=== PATIENT | female | born 1995 | race Caucasian/White ===

== ENCOUNTER 2016-06-15 11:42 | Emergency (ER) | payer MEDICAID ==
[~2016-06-15] VITALS: Ht 154.9 cm; Wt 66.0 kg
[~2016-06-15 11:42] MED LIST: AMOX875T PO; METF500T PO
[2016-06-15 11:43] VITALS: BP 140/73; PULSE 95; RESP 18; TEMP 98.2; O2SAT 98
[2016-06-15] MEDS ORDERED: LANTUS2P SQ ×2 (12:05→13:39)
[2016-06-15 12:12] VITALS: BP 112/56; PULSE 74; RESP 16; O2SAT 99
[2016-06-15] MEDS ORDERED: ONDANSETRON HCL 4 MG/2 ML VIAL IV PUSH ONE (12:15)
[2016-06-15] MEDS ORDERED: SODIUM CHLOR 0.9% 1000 ML INJ 1,000 ML IV ONE (12:15)
[2016-06-15 12:26] LABS: AUTOMATED NEUTROPHIL # 4.1 TH/MM3 (1.8-7.7); BASOPHIL # 0.1 TH/MM3 (0-0.2); BASOPHIL % 0.8 % (0.0-2.0); EOSINOPHIL % 0.5 % (0.0-4.0); HEMATOCRIT 43.6 % (35.0-46.0); HEMO FLAGS DIFF FINAL; LYMPH % 32.7 % (9.0-44.0); LYMPHOCYTE # 2.2 TH/MM3 (1.0-4.8); MEAN CELL VOLUME 87.3 FL (80.0-100.0); MEAN CORPUSCULAR HEMOGLOBIN 29.8 PG (27.0-34.0); MEAN CORPUSCULAR HGB CONC 34.1 % (32.0-36.0); MONO % 6.4 % (0.0-8.0); NEUT % 59.6 % (16.0-70.0); PLATELET COUNT 159 TH/MM3 (150-450); RED BLOOD COUNT 4.99 MIL/MM3 (4.00-5.30); RED CELL DISTRIBUTION WIDTH 12.4 % (11.6-17.2); WHITE BLOOD COUNT 6.8 TH/MM3 (4.0-11.0)
[2016-06-15 12:53] LABS: BACTERIA, URINE MOD /hpf; BLOOD, URINE TRACE (NEG); COMMENT (UR) CULTURE INDICATED; CULTURE IF INDICATED CULTURE INDICATED; GLUCOSE,URINE 1000 mg/dL (NEG); KETONE, URINE NEG (NEG); MUCUS URINE FEW /lpf (OCC); NITRITE,URINE NEG (NEG); SQUAMOUS EPITHELIAL CELL URINE 90 /hpf (0-5); URINE COLOR YELLOW (YELLW/STRAW)
[2016-06-15 12:54] LABS: ALT (GPT) 14 U/L (10-53); ANION GAP 11 MEQ/L (5-15); AST (GOT) 15 U/L (15-37); BICARBONATE 22.5 MEQ/L (21.0-32.0); BLOOD UREA NITROGEN 5 MG/DL (7-18); CHLORIDE 105 MEQ/L (98-107); GLOMERULAR FILTRATION RATE 103 ML/MIN (>89); POTASSIUM 3.6 MEQ/L (3.5-5.1); SODIUM (NA) 138 MEQ/L (136-145)
[2016-06-15 13:10] LABS: ALKALINE PHOSPHATASE 41 U/L (45-117); BETA HCG QUANT 59073 MIU/ML (0-5); TOTAL BILIRUBIN ADULT 0.4 MG/DL (0.2-1.0)
[2016-06-15] MEDS ORDERED: METF500T PO (13:39)
[2016-06-15] MEDS ORDERED: MACR100C2 PO (13:39)
--- NOTE | 2016-06-15 13:39 | PD ---
HPI Chief Complaint: GI Complaint Time Seen by Provider: 11:56 Travel History International Travel<30 days: No Contact w/Intl Traveler<30days: No Traveled to known affect area: No History of Present Illness HPI Patient is a 21 year old female, , who comes in complaining of lower abdominal pain and vomiting. She says she has had vomiting on and off for the past 4 days. The last time she vomited was this morning when she woke up. She says she has some pain to her lower abdomen. She denies vaginal discharge or bleeding. She says her LMP was May 01 and she believes she might be . She denies fever or chills. She also reports she is out of her Diabetes medications, Lantus 40 units at night and Metformin. PFS Past Medical History Diabetes: Yes Patient Takes Glucophage: Yes Gestational Age in Weeks: 40 Influenza Vaccination: No ?: Unknown LMP: 05/01/2016 : 1 Para: 1 Miscarriage: 0 : 0 Past Surgical History Section: Yes Social History Alcohol Use: No Tobacco Use: No Substance Use: No Allergies-Medications (Allergen,Severity, Reaction): Coded Allergies: No Known Allergies (Verified , 06/15/16) Reported Meds & Prescriptions Reported Meds & Active Scripts Active Macrobid (Nitrofurantoin Monoh/Nitrofur Macro) 100 Mg Cap 100 Mg PO BID 7 Days Metformin (Metformin HCl) 500 Mg Tab 500 Mg PO BIDPC With meals Lantus Inj (Insulin Glargine) 1,000 Unit/10 Ml Vial 40 Units SQ HS 30 Days Reported Lantus Inj (Insulin Glargine) 1,000 Unit/10 Ml Vial 40 Units SQ HS Metformin (Metformin HCl) 500 Mg Tab 500 Mg PO BIDPC With meals Review of Systems Except as stated in HPI: all other systems reviewed are Neg General / Constitutional: No: Fever HENT: No: Headaches, Lightheadedness Cardiovascular: No: Chest Pain or Discomfort Respiratory: No: Shortness of Breath Gastrointestinal: Positive: Nausea, Vomiting, Abdominal Pain Genitourinary: No: Discharge, Vaginal Bleeding Skin: No Rash, No Change in Pigmentation Neurologic: No: Weakness, Dizziness Physical Exam Narrative GENERAL: Awake and alert, in no acute distress. SKIN: Focused skin assessment warm/dry. HEAD: Atraumatic. Normocephalic. EYES: Pupils equal and round. No scleral icterus. ENT: Mucous membranes pink and moist. NECK: Trachea midline. No JVD. CARDIOVASCULAR: Regular rate and rhythm. No murmur appreciated. RESPIRATORY: No accessory muscle use. Clear to auscultation. Breath sounds equal bilaterally. GASTROINTESTINAL: Abdomen soft, non-tender, nondistended. No CVA tenderness : Performed in the presence of female nurse. Thick white discharge. Os is closed. No CMT. MUSCULOSKELETAL: No obvious deformities. No clubbing. No cyanosis. No edema. NEUROLOGICAL: Awake and alert. No obvious cranial nerve deficits. Motor grossly within normal limits. Normal speech. PSYCHIATRIC: Appropriate mood and affect; insight and judgment normal. Data Data Last Documented VS Vital Signs Date Time Temp Pulse Resp B/P Pulse Ox O2 Delivery O2 Flow Rate FiO2 06/15/16 13:55 76 15 115/59 98 06/15/16 12:12 Room Air 06/15/16 11:43 98.2 Orders Complete Blood Count With Diff (06/15/16 12:03) Comprehensive Metabolic Panel (06/15/16 12:03) Lipase (06/15/16 12:03) Urinalysis - C+S If Indicated (06/15/16 12:03) Ed Urine Pregnancytest Poc (06/15/16 12:03) Beta Hcg (Quant/Titer) (06/15/16 12:03) Sodium Chlor 0.9% 1000 Ml Inj (Ns 1000 M (06/15/16 12:15) Ondansetron Inj (Zofran Inj) (06/15/16 12:15) Urine Culture (06/15/16 12:30) Wet Prep Profile (06/15/16 13:08) Gc And Chlamydia Pcr (06/15/16 13:08) Ed Poc Ultrasound (06/15/16 ) Labs Laboratory Tests Test 06/15/16 06/15/16 06/15/16 12:10 12:30 13:10 White Blood Count 6.8 TH/MM3 Red Blood Count 4.99 MIL/MM3 Hemoglobin 14.9 GM/DL Hematocrit 43.6 % Mean Corpuscular Volume 87.3 FL Mean Corpuscular Hemoglobin 29.8 PG Mean Corpuscular Hemoglobin 34.1 % Concent Red Cell Distribution Width 12.4 % Platelet Count 159 TH/MM3 Mean Platelet Volume 8.5 FL Neutrophils (%) (Auto) 59.6 % Lymphocytes (%) (Auto) 32.7 % Monocytes (%) (Auto) 6.4 % Eosinophils (%) (Auto) 0.5 % Basophils (%) (Auto) 0.8 % Neutrophils # (Auto) 4.1 TH/MM3 Lymphocytes # (Auto) 2.2 TH/MM3 Monocytes # (Auto) 0.4 TH/MM3 Eosinophils # (Auto) 0.0 TH/MM3 Basophils # (Auto) 0.1 TH/MM3 CBC Comment DIFF FINAL Differential Comment Sodium Level 138 MEQ/L Potassium Level 3.6 MEQ/L Chloride Level 105 MEQ/L Carbon Dioxide Level 22.5 MEQ/L Anion Gap 11 MEQ/L Blood Urea Nitrogen 5 MG/DL Creatinine 0.71 MG/DL Estimat Glomerular Filtration 103 ML/MIN Rate Random Glucose 291 MG/DL Calcium Level 8.9 MG/DL Total Bilirubin 0.4 MG/DL Aspartate Amino Transf 15 U/L (AST/SGOT) Alanine Aminotransferase 14 U/L (ALT/SGPT) Alkaline Phosphatase 41 U/L Total Protein 7.0 GM/DL Albumin 3.5 GM/DL Lipase 158 U/L Human Chorionic Gonadotropin, 38704 MIU/ML Quant Urine Color YELLOW Urine Turbidity CLOUDY Urine pH 6.0 Urine Specific [place] 1.030 Urine Protein TRACE mg/dL Urine Glucose (UA) 1000 mg/dL Urine Ketones NEG mg/dL Urine Occult Blood TRACE Urine Nitrite NEG Urine Bilirubin NEG Urine Urobilinogen LESS THAN 2.0 MG/DL Urine Leukocyte Esterase LARGE Urine RBC 6 /hpf Urine WBC 77 /hpf Urine Squamous Epithelial 90 /hpf Cells Urine Bacteria MOD /hpf Urine Mucus FEW /lpf Microscopic Urinalysis Comment CULTURE INDICATED Clue Cells (Wet Prep) NONE SEEN Vaginal Trichomonas (Wet Prep) NONE SEEN Vaginal Yeast (Wet Prep) NONE SEEN MDM Medical Decision Making Medical Screen Exam Complete: Yes Emergency Medical Condition: Yes Medical Record Reviewed: Yes Differential Diagnosis UTI vs vs yeast infection vs hyperglycemia Narrative Course Patient is a 21 year old female who comes in complaining of nausea and lower abdominal pain. Exam shows thick white discharge, consistent with yeast. [place] [address]. Urinalysis is positive for bacteria. Patient given IVF and Zofran. She is comfortable, able to tolerate PO. Bedside sono confirms IUP. Patient advised to start vitamins. Given prescriptions for her diabetes medications and for Macrobid for her UTI. Advised to follow up with OB. Advised to return to the ED as needed for any worsening symptoms. Procedures Procedure Narrative Emergency Department Pelvic ultrasound was performed with patient consent. The curvilinear probe was used in the transverse and sagittal views within the suprapubic region revealing single intrauterine . heart rate was 162. [place]-rump length measures 8 weeks and 5 days. Diagnosis Primary Impression: Qualified Code: Z3A.08 - 8 weeks gestation of Additional Impressions: Diabetes mellitus Qualified Code: E11.9 - Type 2 diabetes mellitus without complication, with long-term current use of insulin Medication refill Patient Instructions: General Instructions, (ED) Additional Instructions: Follow up with OB. Take all of your antibiotic and your diabetes medications. Drink plenty of fluids. Return to the ED as needed for any worsening symptoms. Scripts Nitrofurantoin Monohydrate Macrocrystals (Macrobid)100 Mg [id number] Mg PO BID 7 Days Ref 0 Prov:Heide Xiao MD 06/15/16 Metformin 500 Mg [id number] Mg PO BIDPC #60 TAB Ref 0 With meals Prov:Heide Xiao MD 06/15/16 Insulin Glargine Inj (Lantus Inj)1,000 Unit/10 Ml Vial40 Units SQ HS 30 Days Ref 0 Prov:Heide Xiao MD 06/15/16 Disposition: 01 DISCHARGE HOME Condition: Stable Heide Xiao MD Jun 15, 2016 13:39
[2016-06-15 13:55] VITALS: BP 115/59
[2016-06-15 16:25] LABS: CHLAMYDIA PCR NOT DETECTED (NOT DETECT); NEISSERIA PCR NOT DETECTED (NOT DETECT)
== END 2016-06-15 13:56 | disposition home or self-care (01) ==
LOC: NEPD 11:42
DX: O23.41 Unspecified infection of urinary tract in pregnancy, first trimester (principal); B95.1 Streptococcus, group B, as the cause of diseases classified elsewhere; O24.111 Pre-existing type 2 diabetes mellitus, in pregnancy, first trimester; E11.9 Type 2 diabetes mellitus without complications; Z3A.08 8 weeks gestation of pregnancy; Z79.4 Long term (current) use of insulin; Z79.84 Long term (current) use of oral hypoglycemic drugs
CPT/HCPCS: 80053; 81001; 83690; 84702; 84703; 85025; 86403; 87086; 87210; 87491; 87591; 96361; 96374; 99284; J2405; J7030

== ENCOUNTER → 2016-09-19 | Outpatient (CLI) | payer MEDICAID ==
[~2016-09-19] MED LIST changes: -AMOX875T PO; +LANTUS2P SQ; +MACR100C2 PO
== END ==
LOC: CDED 13:36
DX: O24.419 Gestational diabetes mellitus in pregnancy, unspecified control (principal)
CPT/HCPCS: 97802

== ENCOUNTER 2016-10-23 14:00 | Emergency (ER) | payer MEDICAID ==
[2016-10-23 14:03] VITALS: BP 122/83; PULSE 118; RESP 20; TEMP 98.2; O2SAT 99
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
== END 2016-10-23 16:15 | disposition home or self-care (01) ==
LOC: HOBED 14:00
DX: M79.672 Pain in left foot (principal); O24.912 Unspecified diabetes mellitus in pregnancy, second trimester; Z3A.26 26 weeks gestation of pregnancy; Z79.4 Long term (current) use of insulin; Z79.899 Other long term (current) drug therapy
CPT/HCPCS: 99282

== ENCOUNTER 2016-10-23 15:39 | Emergency (ER) | payer MEDICAID, OTHER ==
[~2016-10-23] VITALS: Ht 154.9 cm; Wt 67.0 kg
[2016-10-23 15:41] VITALS: BP 124/82; PULSE 122; RESP 20; TEMP 98.8; O2SAT 100
[2016-10-23] MEDS ORDERED: ACETAMINOPHEN 325 MG TAB PO ONE (16:00)
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
== END 2016-10-23 17:11 | disposition home or self-care (01) ==
LOC: NEPK 15:39
DX: S99.911A Unspecified injury of right ankle, initial encounter (principal); S99.921A Unspecified injury of right foot, initial encounter; S70.02XA Contusion of left hip, initial encounter; E11.9 Type 2 diabetes mellitus without complications; V43.92XA Unspecified car occupant injured in collision with other type car in traffic accident, initial encounter; Z79.4 Long term (current) use of insulin; Z79.899 Other long term (current) drug therapy; Z3A.01 Less than 8 weeks gestation of pregnancy; Z34.91 Encounter for supervision of normal pregnancy, unspecified, first trimester
CPT/HCPCS: 73600; 73620; 99283; E0113; L1906

== ENCOUNTER 2016-12-13 13:17 | Inpatient (IN) | payer MEDICAID ==
[2016-12-13] VITALS (7 sets, daily range): BP systolic 103–127; BP diastolic 61–76; PULSE 58–73; RESP 16–18; TEMP 97.5–97.8; O2SAT 97–100
[~2016-12-13] VITALS: Ht 154.9 cm; Wt 70.0 kg
[~2016-12-13 13:17] MED LIST changes: +LACTATED RINGER'S 1000 ML INJ 2,000 ML IV ONE; +MORPHINE SULFATE PF 5 MG/10 ML VIAL EPIDURAL ONE; +ONDANSETRON HCL 4 MG/2 ML VIAL IV PUSH ONE; +OXYTOCIN 10 UNIT/ML AMP IV ONE; +PHENYLEPH/NS 1000 MCG/10 ML SYR IV ONE
[2016-12-13] MEDS ORDERED: SODIUM CHLORIDE 0.9% FLUSH 10 ML FLUSH IV FLUSH SCH ×2 (14:15→21:00)
[2016-12-13] MEDS ORDERED: DEXTROSE 50% IN WATER 50 ML VIAL(D50) IV PUSH PRN (14:15)
[2016-12-13] MEDS ORDERED: GLUCAGON 1 MG/ML VIAL IM PRN (14:15)
[2016-12-13] MEDS ORDERED: SODIUM CHLORIDE 0.9% FLUSH 10 ML FLUSH IV FLUSH PRN ×2 (14:15→18:15)
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
[2016-12-13 14:37] LABS: BACTERIA, URINE MANY /hpf; BILIRUBIN, URINE NEG (NEG); BLOOD, URINE NEG (NEG); GLUCOSE,URINE 1000 mg/dL (NEG); KETONE, URINE NEG (NEG); MUCUS URINE FEW /lpf (OCC); NITRITE,URINE NEG (NEG); PH, URINE 6.5 (5.0-8.5); SQUAMOUS EPITHELIAL CELL URINE 19 /hpf (0-5); URINE COLOR LIGHT-YELLOW (YELLW/STRAW); URINE LEUKOCYTE ESTERASE SMALL (NEG)
[2016-12-13] MEDS ORDERED: SODIUM CHLOR 0.9% 1000 ML INJ 1,000 ML IV SCH (15:00)
[2016-12-13] MEDS ORDERED: INSULIN HUMAN NPH 1,000 UNITS/10 ML VIAL SQ SCH ×3 (15:00→17:00)
[2016-12-13] MEDS: INSULIN NovoLIN REGULAR SUPPLEMENTAL SCALE SQ SCH ×3 (15:04→20:34)
[2016-12-13 15:40] LABS: AUTOMATED NEUTROPHIL # 5.8 TH/MM3 (1.8-7.7); BASOPHIL % 0.5 % (0.0-2.0); EOSINOPHIL % 0.1 % (0.0-4.0); HEMATOCRIT 42.5 % (35.0-46.0); HEMOGLOBIN 14.6 GM/DL (11.6-15.3); LYMPH % 28.1 % (9.0-44.0); LYMPHOCYTE # 2.4 TH/MM3 (1.0-4.8); MEAN CELL VOLUME 89.1 FL (80.0-100.0); MEAN CORPUSCULAR HEMOGLOBIN 30.5 PG (27.0-34.0); MEAN CORPUSCULAR HGB CONC 34.2 % (32.0-36.0); MEAN PLATELET VOLUME 10.7 FL (7.0-11.0); MONO % 4.8 % (0.0-8.0); MONOCYTE # 0.4 TH/MM3 (0-0.9); NEUT % 66.5 % (16.0-70.0); PLATELET COUNT 138 TH/MM3 (150-450); RED BLOOD COUNT 4.77 MIL/MM3 (4.00-5.30); WHITE BLOOD COUNT 8.7 TH/MM3 (4.0-11.0)
[2016-12-13 16:03] LABS: ALBUMIN 2.6 GM/DL (3.4-5.0); ALT (GPT) 10 U/L (10-53); AST (GOT) 16 U/L (15-37); BICARBONATE 23.3 MEQ/L (21.0-32.0); BLOOD UREA NITROGEN 9 MG/DL (7-18); CALCIUM 8.7 MG/DL (8.5-10.1); CHLORIDE 102 MEQ/L (98-107); CREATININE 0.64 MG/DL (0.50-1.00); GLOMERULAR FILTRATION RATE 116 ML/MIN (>89); GLUCOSE,RANDOM 188 MG/DL (74-106); SODIUM (NA) 134 MEQ/L (136-145)
[2016-12-13 16:06] LABS: ALKALINE PHOSPHATASE 127 U/L (45-117); TOTAL BILIRUBIN ADULT 0.2 MG/DL (0.2-1.0); TOTAL PROTEIN 6.7 GM/DL (6.4-8.2)
[2016-12-13] MEDS ORDERED: ceFAZolin 2 GM PREMIX 50 ML IV ONE (16:15)
[2016-12-13] MEDS ORDERED: ACETAMINOPHEN 1000 MG/100 ML 100 ML IV ONE (16:20)
[2016-12-13] MEDS ORDERED: ceFAZolin INJ 1,000 MG VIAL ONE (16:32)
[2016-12-13] MEDS ORDERED: CITRIC ACID-SODIUM CITRATE LIQ 30 ML UDC ONE (16:32)
[2016-12-13 16:34] LABS: HEMOGLOBIN A1C 8.4 % (4.3-6.0)
[2016-12-13] MEDS ORDERED: OXYTOCIN 30 UNITS-500ML PREMIX 500 ML IV ONE (18:15)
[2016-12-13] MEDS ORDERED: ONDANSETRON HCL 4 MG/2 ML VIAL IV PUSH PRN (18:15)
[2016-12-13] MEDS ORDERED: KETOROLAC TROMETHAMINE 60 MG/2 ML (IM) VIAL IM PRN (18:15)
[2016-12-13] MEDS ORDERED: SODIUM CHLOR 0.45% 1000 ML INJ 1,000 ML IV SCH (19:00)
[2016-12-13] MEDS: diphenhydrAMINE HCL 50 MG/ML VIAL IM PRN (21:25)
--- NOTE | 2016-12-13 21:57 | MP ---
cc: VALERIA LAWLER MD DATE OF SURGERY 12/13/16 PREOPERATIVE DIAGNOSIS Intrauterine at 35-36 weeks with uncontrolled insulin dependent diabetes, non-reassuring heart rate tracing, 2/8 on biophysical profile. POSTOPERATIVE DIAGNOSIS Intrauterine at 35-36 weeks with uncontrolled insulin dependent diabetes, non-reassuring heart rate tracing, 2/8 on biophysical profile. PROCEDURE PERFORMED Repeat low transverse section. SURGEON MD Andres. INTERNAL MEDICINE HOSPITALIST Dr. Lees, [facility]. ANESTHESIA Spinal. PREOPERATIVE NOTE The patient is a 21-year-old white female with class C insulin dependent diabetes, uncontrolled hyperglycemia, referred over from the clinic due to massive glucosuria. Once placed on the monitor here on labor and delivery noted to have a non-reassuring heart tracing with nonreactive strip with tachycardia in the 160-180 range. She had a biophysical profile done that showed a 2/8 with only 2 for fluid, everything else 0, no movement, no breathing, no tone. Ultrasound findings also showed abnormal Dopplers throughout the umbilical cord with absent end diastolic flow and reversal in the artery and pulsatility in the umbilical vein. There was reversal of flow seen in the ductus venosus. The tech terminated the biophysical early, she feared for the baby's life. It was felt that after review of the strip and ultrasound delivery needed. OPERATIVE NOTE The patient was taken to the operating room and placed in the supine position on the operating table after adequate spinal anesthesia. She was prepped and draped for abdominal surgery and the previous Pfannenstiel incision was excised out. The incision was carried through the fascia sharply and the fascia dissected laterally off the rectus. The peritoneal cavity was entered sharply in the midline. The incision was extended superior and inferiorly. The incision stretched open. The bladder blade was placed on the lower edge of the incision. The viscera peritoneum was reflected off the lower uterine segment and placed upon the bladder blade. Transverse hysterotomy was made and extended bluntly bilaterally and a rather massive amount of clear amniotic fluid noted. Baby was delivered at 5:02 p.m., a male , weight 3310 grams, Apgars 2 and 7. The cord ph was 7.02 with a high PC02 reflecting almost total respiratory acidosis. The baby was handed to waiting neonatology and its staff. Cord gas, as mentioned, was obtained. Cord blood obtained. Placenta manually extracted and sent to pathology. The uterus exteriorized. The hysterotomy closed in a running layer of 0-Chromic followed by imbricating suture of same and hemostasis was achieved with a couple of stick ties on the corner of the repair. The uterus was elevated, blood suctioned from the cul-de-sac gutter and the uterus replaced in the peritoneal cavity. The parietal peritoneum closed in a running layer of 2-0 Vicryl. Rectus muscle approximated with stick tie, chromic. The fascia was then closed in a running layer of 0 Vicryl. Subcutaneous tissue was reapproximated with a 3-0 plain cat gut suture in a running fashion. Skin was closed with a Jakub needle, 3-0 Monocryl subcuticular stitch. Steri-Strips, pressure dressing applied. The estimated blood loss was 500 cc. There were no complications. Sponge and needle count correct x 2. The patient went to recovery in stable condition. MD JOSE MARIA Lewis/MANUEL /6:04 PM /9:27 PM
[2016-12-14] MEDS ORDERED: KETOROLAC TROMETHAMINE 60 MG/2 ML (IM) VIAL IM PRN
[2016-12-14 01:00] VITALS: BP 130/91; PULSE 89; RESP 16; TEMP 97.5
[2016-12-14] MEDS ORDERED: OXYTOCIN 30 UNITS-500ML PREMIX 500 ML IV PRN (04:15)
[2016-12-14 05:00] VITALS: BP 116/75; PULSE 68; RESP 16; TEMP 97.7
[2016-12-14] MEDS: oxyCODONE/ACETAMINOPHEN 5 MG/325 MG TAB PO PRN ×3 (05:05→17:10)
[2016-12-14] MEDS: diphenhydrAMINE HCL 50 MG/ML VIAL IM PRN (05:05)
[2016-12-14 08:10] VITALS: BP 114/77; PULSE 72; RESP 18; TEMP 98.8
--- NOTE | 2016-12-14 08:27 | HHI.OB ---
Subjective Post Operative Day: 1 Remarks Postop day 1 , afebrile vital signs stable, still receiving Ancef IV Patient is awake and alert has no nausea and vomiting, bleeding minimal, bandages dry, she's had sips of water and a few crackers since surgery Objective Vitals/I&O Vital Signs Date Time Temp Pulse Resp B/P (MAP) Pulse Ox O2 Delivery O2 Flow Rate FiO2 12/14/16 05:00 97.7 12/14/16 05:00 68 16 116/75 (89) 12/14/16 01:00 97.5 89 16 130/91 (104) 12/13/16 20:20 97.5 73 16 127/76 (93) 12/13/16 19:01 97.6 12/13/16 19:00 67 18 112/66 (81) 100 12/13/16 18:44 18 97 12/13/16 18:44 62 114/67 (83) 12/13/16 18:33 62 18 105/64 (78) 100 12/13/16 18:15 60 16 106/65 (79) 100 12/13/16 18:05 58 18 103/61 (75) 100 12/13/16 18:05 97.8 Result Diagram: 12/13/16 1459 12/13/16 1459 Objective Remarks GENERAL: Well-nourished, well-developed patient. CARDIOVASCULAR: Regular rate and rhythm without murmurs, gallops, or rubs. RESPIRATORY: Breath sounds equal bilaterally. No accessory muscle use. ABDOMEN/GI: Abdomen soft, non-tender, bowel sounds minimal Incision: Clean, dry and intact. Fundus: Firm, non-tender just above umbilicus. GENITOURINARY: Light to moderate bleeding. EXTREMITIES: No cyanosis or edema, non-tender, without signs of DVT. Medications and IVs Current Medications Medications (Trade) Dose Ordered Sig/Yessica Route Start Time Stop Time Status Last Admin (D50w (Vial) Inj) 50 ml UNSCH PRN IV PUSH 12/13/16 14:15 (Glucagon Inj) 1 mg STAT PRN IM 12/13/16 14:15 Oxytocin 500 ml @ 100 mls/hr UNSCH X1 PRN IV 12/14/16 04:15 12/15/16 04:14 (NS Flush) 2 ml BID IV FLUSH 12/13/16 21:00 (NS Flush) 2 ml UNSCH PRN IV FLUSH 12/13/16 18:15 (Toradol Inj) 60 mg UNSCH X1 PRN IM 12/13/16 18:15 12/14/16 18:14 (Percocet 5-325 Mg) 1 tab Q4H PRN PO 12/13/16 18:15 12/14/16 05:05 (Percocet 5-325 Mg) 2 tab Q4H PRN PO 12/13/16 18:15 Cefazolin Sodium 1000 mg/Sodium Chloride 100 ml @ 200 mls/hr Q8H IV 12/14/16 00:00 12/14/16 08:29 12/14/16 02:32 (M-M-R Ii Inj) 0.5 ml ONCE ONCE SQ 12/14/16 16:00 12/14/16 16:01 (Boostrix Inj) 0.5 ml ONCE ONCE IM 12/14/16 16:00 12/14/16 16:01 (Zofran Inj) 4 mg Q6H PRN IV PUSH 12/13/16 18:15 Sodium Chloride 1,000 ml @ 125 mls/hr Q8H IV 12/13/16 19:00 12/14/16 02:46 (NovoLIN R SUPPLEMENTAL SCALE) 1 ACHS SLIDING SCALE SQ 12/13/16 21:00 12/13/16 20:34 (Benadryl Inj) 50 mg Q6H PRN IM 12/13/16 21:15 12/14/16 05:05 (Glucophage) 500 mg BIDPC PO 12/14/16 09:00 UNV Assessment/Plan Assessment and Plan 21 yr old at 35/6 weeks admitted for uncontrolled DM and delivered for nonreassuring reassuring heart rate tracing and abnormal ultrasound findings fetus, section a repeat Blood sugars relatively stable since surgery and she is on a sliding scale fairly low-dose regular insulin, fasting blood sugars morning is 96, several sugars in the middle of the night were 194 and 188 Minimal bowel sounds this morning with minimal distention as well and the patient risk for gastroparesis postop being diabetic so advanced diet slowly with clear liquids today and she can continue later in the day to maybe eat some crackers or small items is parous no nausea and vomiting, if tolerating diet and would consider re-adding NPH in the evening tonight, checking blood sugars every 4 hours during the day today and if NPH is given in the night and then began scheduled blood sugar checks. Chiki Campos II, MD Dec 14, 2016 08:27
[2016-12-14] MEDS: INSULIN NovoLIN REGULAR SUPPLEMENTAL SCALE SQ SCH (08:49)
[2016-12-14] MEDS ORDERED: metFORMIN HCL 500 MG TAB PO SCH (09:00)
[2016-12-14] MEDS: metFORMIN HCL 500 MG TAB PO SCH ×2 (12:12→23:05)
[2016-12-14 16:00] VITALS: BP 112/74; PULSE 81; RESP 18; TEMP 98.1
[2016-12-14] MEDS ORDERED: DIPHTH/TETANUS/ACEL PERTUSSIS (BOOSTER) 0.5 ML VIAL/PFS IM ONE (16:00)
[2016-12-14] MEDS ORDERED: MEASLES, MUMPS, RUBELLA VACCINE 0.5 ML VIAL SQ ONE (16:00)
[2016-12-14 17:11] LABS: AUTOMATED NEUTROPHIL # 7.7 TH/MM3 (1.8-7.7); BASOPHIL % 0.2 % (0.0-2.0); HEMATOCRIT 39.7 % (35.0-46.0); HEMOGLOBIN 13.6 GM/DL (11.6-15.3); LYMPH % 18.9 % (9.0-44.0); LYMPHOCYTE # 1.9 TH/MM3 (1.0-4.8); MEAN CELL VOLUME 89.3 FL (80.0-100.0); MEAN CORPUSCULAR HEMOGLOBIN 30.5 PG (27.0-34.0); MEAN CORPUSCULAR HGB CONC 34.2 % (32.0-36.0); MEAN PLATELET VOLUME 10.4 FL (7.0-11.0); MONO % 5.6 % (0.0-8.0); MONOCYTE # 0.6 TH/MM3 (0-0.9); NEUT % 75.3 % (16.0-70.0); PLATELET COUNT 123 TH/MM3 (150-450); RED BLOOD COUNT 4.44 MIL/MM3 (4.00-5.30); RED CELL DISTRIBUTION WIDTH 11.7 % (11.6-17.2); WHITE BLOOD COUNT 10.3 TH/MM3 (4.0-11.0)
[2016-12-14 20:30] VITALS: BP 103/62; PULSE 66; TEMP 97.5
[2016-12-15 04:11] VITALS: TEMP 98.1
[2016-12-15] MEDS: oxyCODONE/ACETAMINOPHEN 5 MG/325 MG TAB PO PRN ×5 (04:12→21:20)
[2016-12-15 08:00] VITALS: BP 106/73; PULSE 70; RESP 18; TEMP 98.4
[2016-12-15] MEDS: INSULIN NovoLIN REGULAR SUPPLEMENTAL SCALE SQ SCH ×3 (08:00→20:08)
[2016-12-15] MEDS: metFORMIN HCL 500 MG TAB PO SCH ×2 (08:35→23:15)
--- NOTE | 2016-12-15 08:44 | HHI.OB ---
Subjective Post Operative Day: 2 Remarks Pt is doing well this morning. She tolerated a liquid diet yesterday with no problems. She would like to try a regular diet today. Her sugars ranged from 96- 255 the previous day, requiring 9 units of SSI. (Teri Porras MD R2) Remarks Patient seen and evaluated with resident under direct supervision, agree with assessment and plan. (Jared Dill MD) Objective Vitals/I&O Vital Signs Date Time Temp Pulse Resp B/P (MAP) Pulse Ox O2 Delivery O2 Flow Rate FiO2 12/15/16 04:11 98.1 12/14/16 20:30 97.5 66 103/62 (76) 12/14/16 16:00 98.1 18 12/14/16 16:00 81 112/74 (87) (Teri Porras MD R2) Result Diagram: 12/14/16 1600 12/13/16 1459 Objective Remarks GENERAL: Well-nourished, well-developed patient. CARDIOVASCULAR: Regular rate and rhythm without murmurs, gallops, or rubs. RESPIRATORY: Breath sounds equal bilaterally. No accessory muscle use. ABDOMEN/GI: Abdomen soft, non-tender, bowel sounds improved from the previous day Incision: Clean, dry and intact. Fundus: Firm, non-tender just above umbilicus. GENITOURINARY: Light to moderate bleeding. EXTREMITIES: No cyanosis or edema, non-tender, without signs of DVT. Medications and IVs Current Medications Medications (Trade) Dose Ordered Sig/Yessica Route Start Time Stop Time Status Last Admin (D50w (Vial) Inj) 50 ml UNSCH PRN IV PUSH 12/13/16 14:15 (Glucagon Inj) 1 mg STAT PRN IM 12/13/16 14:15 (NS Flush) 2 ml BID IV FLUSH 12/13/16 21:00 (NS Flush) 2 ml UNSCH PRN IV FLUSH 12/13/16 18:15 (Percocet 5-325 Mg) 1 tab Q4H PRN PO 12/13/16 18:15 12/15/16 04:12 (Percocet 5-325 Mg) 2 tab Q4H PRN PO 12/13/16 18:15 12/14/16 17:10 (Zofran Inj) 4 mg Q6H PRN IV PUSH 12/13/16 18:15 Sodium Chloride 1,000 ml @ 125 mls/hr Q8H IV 12/13/16 19:00 12/14/16 02:46 (NovoLIN R SUPPLEMENTAL SCALE) 1 ACHS SLIDING SCALE SQ 12/13/16 21:00 12/14/16 08:49 (Benadryl Inj) 50 mg Q6H PRN IM 12/13/16 21:15 12/14/16 05:05 (Glucophage) 500 mg Q12H PO 12/14/16 11:15 12/14/16 23:05 (Teri Porras MD R2) Assessment/Plan Assessment and Plan 21 y/o female who is POD# 2 s/p for nonreassuring heart rate tracing and abnormal ultrasound findings -Type I diabetic currently on metformin and sliding scale insulin. If patient tolerates the regular diabetic diet today, consider starting longer acting insulin in the evening. She was reportedly on Lantus 40 units subcutaneous daily at bedtime at home, but did not have any insulin medication for a while. Patient does not have a primary care doctor and will need to establish with one ideally before discharge. -Continue routine care -Percocet and Motrin PRN pain -Pericolase PRN for constipation -Encouraged OOB. Advised pelvic rest for 6 wks -Will need a follow-up appointment within 1 week for incision check -Re: ctrl: Patient is now considering Depo-Provera shot Discussed with Dr. Dill Discharge Planning Discharge home possibly in 1 day (Teri Porras MD R2) Teri Porras MD R2 Dec 15, 2016 08:44 Jared Dill MD Dec 15, 2016 09:07
[2016-12-15 19:50] VITALS: BP 134/88; PULSE 89; RESP 16; TEMP 98.3
[2016-12-16] MEDS: oxyCODONE/ACETAMINOPHEN 5 MG/325 MG TAB PO PRN ×3 (03:40→18:46)
[2016-12-16 08:00] VITALS: BP 133/92; PULSE 82; RESP 16; TEMP 98.2
[2016-12-16] MEDS: INSULIN NovoLIN REGULAR SUPPLEMENTAL SCALE SQ SCH ×4 (08:00→20:53)
[2016-12-16] MEDS ORDERED: OXYC1TAB63 PO (08:08)
[2016-12-16] MEDS ORDERED: DOCUSATE SODIUM 50 MG/SENNA 8.6 MG TAB PO PRN (08:15)
--- NOTE | 2016-12-16 08:17 | HHI.OB ---
Subjective Remarks 21 year old female s/p stat C/S due to nonreassuring heart tracing at 35/6 wks gestation, POD3. AFVSS. Patient reports she is feeling well. Bleeding is decreasing and pain is well-controlled. She is formula feeding. Baby not in the room. Ambulating without difficulties. She is tolerating a diet without nausea or vomiting. She has not had a bowel movement. She has passed gas. Denies chest pain, dysuria, shortness of breath, or calf pain. Objective Vitals/I&O Vital Signs Date Time Temp Pulse Resp B/P (MAP) Pulse Ox O2 Delivery O2 Flow Rate FiO2 12/15/16 19:50 98.3 89 16 134/88 (103) Result Diagram: 12/14/16 1600 12/13/16 1459 Objective Remarks GENERAL: Well-nourished, well-developed patient. CARDIOVASCULAR: Regular rate and rhythm without murmurs, gallops, or rubs. RESPIRATORY: Breath sounds equal bilaterally. No accessory muscle use. ABDOMEN/GI: Abdomen soft, non-tender, bowel sounds improved from the previous day Incision: Clean, dry and intact. Fundus: Firm, non-tender just above umbilicus. GENITOURINARY: Light to moderate bleeding. EXTREMITIES: No cyanosis or edema, non-tender, without signs of DVT. Medications and IVs Current Medications Medications (Trade) Dose Ordered Sig/Yessica Route Start Time Stop Time Status Last Admin (D50w (Vial) Inj) 50 ml UNSCH PRN IV PUSH 12/13/16 14:15 (Glucagon Inj) 1 mg STAT PRN IM 12/13/16 14:15 (NS Flush) 2 ml BID IV FLUSH 12/13/16 21:00 (NS Flush) 2 ml UNSCH PRN IV FLUSH 12/13/16 18:15 (Percocet 5-325 Mg) 1 tab Q4H PRN PO 12/13/16 18:15 12/16/16 03:40 (Percocet 5-325 Mg) 2 tab Q4H PRN PO 12/13/16 18:15 12/15/16 21:20 (Zofran Inj) 4 mg Q6H PRN IV PUSH 12/13/16 18:15 Sodium Chloride 1,000 ml @ 125 mls/hr Q8H IV 12/13/16 19:00 12/14/16 02:46 (NovoLIN R SUPPLEMENTAL SCALE) 1 ACHS SLIDING SCALE SQ 12/13/16 21:00 12/15/16 20:08 (Benadryl Inj) 50 mg Q6H PRN IM 12/13/16 21:15 12/14/16 05:05 (Glucophage) 500 mg Q12H PO 12/14/16 11:15 12/15/16 08:35 (Pneumovax-23 Inj) 25 mcg ONCE ONCE IM 12/16/16 10:00 12/16/16 10:01 (Flu (Quadrivalent) Vaccine Inj) 0.5 ml ONCE ONCE IM 12/16/16 10:00 12/16/16 10:01 12/15/16 23:48 Assessment/Plan Assessment and Plan 21 y/o female who is POD# 2 s/p for nonreassuring heart rate tracing and abnormal ultrasound findings -Type I diabetic currently on metformin and sliding scale insulin. She was reportedly on Lantus 40 units subcutaneous daily at bedtime at home, but did not have any insulin medication for a while. -Bedside glucose ranging from 74-276 for the last 24 hrs -Patient reports that she is staying with a friend and has access to a refrigerator for insulin storage. -Continue routine care -Percocet and Motrin PRN pain -Pericolace PRN for constipation -Encouraged OOB. Advised pelvic rest for 6 wks -Will need a follow-up appointment within 1 week for incision check -Re: ctrl: Depo-Provera shot -Anticipate discharge today if possible. Will touch base with case management for recommendations: access to medical care, transportation, living situation, and follow-up. Discussed with Dr. Bonilla and Fang Hoyt MD Dec 16, 2016 08:17
[2016-12-16] MEDS ORDERED: medroxyPROGESTERone ACETATE SUSP 150 MG/ML SYRINGE IM ONE (09:00)
[2016-12-16] MEDS ORDERED: PNEUMOCOCCAL POLYVALENT INJ 25 MCG/0.5 ML SYR IM ONE (10:00)
[2016-12-16] MEDS ORDERED: INFLUENZA VIRUS VACCINE (QUADRIVALENT) 0.5 ML SYR IM ONE (10:00)
[2016-12-16] MEDS: metFORMIN HCL 500 MG TAB PO SCH ×2 (11:42→22:29)
[2016-12-16] MEDS: IBUPROFEN 600 MG TAB PO PRN ×2 (11:42→18:45)
[2016-12-16] MEDS ORDERED: metFORMIN HCL 500 MG TAB PO ONE (15:15)
[2016-12-16 15:52] LABS: HEPATITIS A AB IGM NEGATIVE (NEGATIVE); HEPATITIS B SURFACE ANTIGEN NEGATIVE (NEGATIVE); HEPATITIS C AB IgG NEGATIVE (NEGATIVE)
[2016-12-16 20:20] VITALS: BP 146/87; PULSE 70; RESP 16; TEMP 98.3
[2016-12-17] MEDS: metFORMIN HCL 500 MG TAB PO SCH (06:07)
[2016-12-17 07:39] VITALS: BP 124/80; PULSE 58; RESP 17; TEMP 98.2; O2SAT 100
[2016-12-17] MEDS: INSULIN NovoLIN REGULAR SUPPLEMENTAL SCALE SQ SCH (08:29)
[2016-12-17] MEDS ORDERED: BLOOD GLUCOSE M1 KIT (09:01)
[2016-12-17] MEDS ORDERED: METF500T PO (09:01)
--- NOTE | 2016-12-17 09:02 | HHI.DCPOC ---
Discharge Care Plan Diagnosis: (1) Diabetes mellitus (2) delivery delivered Report Symptoms to Your Doctor -Temperature above 100.5 degrees -Redness, of incision or excessive or foul smelling drainage -Unusual pain or calf pain -Increased vaginal bleeding -Painful or difficulty urinating -Feelings of extreme sadness or anxiety after 2 weeks Goals to Promote Your Health * To prevent worsening of your condition and complications * To maintain your health at the optimal level Directions to Meet Your Goals Take your medications as prescribed Follow your dietary instruction Follow activity as directed Ensure plenty of rest for recovery Drink fluids for hydration Keep your appointments as scheduled Take your immunizations and boosters as scheduled If your symptoms worsen call your PCP, if no PCP go to Urgent Care Center or Emergency Room Smoking is Dangerous to Your Health. Avoid second hand smoke Call the 24-hour crisis hotline for domestic abuse at Fang Lees MD R1 Dec 17, 2016 09:02
--- NOTE | 2016-12-17 10:18 | HHI.OB ---
Subjective Remarks 21 year old female s/p stat C/S due to nonreassuring heart tracing at 35/6 wks gestation, POD4. AFVSS. Patient reports she is feeling well. Bleeding is decreasing and pain is well-controlled. She is formula feeding. Baby not in the room. Ambulating without difficulties. She is tolerating a diet without nausea or vomiting. She has not had a bowel movement. She has passed gas. Denies chest pain, dysuria, shortness of breath, or calf pain. Objective Vitals/I&O Vital Signs Date Time Temp Pulse Resp B/P (MAP) Pulse Ox O2 Delivery O2 Flow Rate FiO2 12/17/16 07:39 98.2 58 17 124/80 (95) 100 12/16/16 20:20 98.3 70 16 146/87 (106) Result Diagram: 12/14/16 1600 12/13/16 1459 Objective Remarks GENERAL: Well-nourished, well-developed patient. CARDIOVASCULAR: Regular rate and rhythm without murmurs, gallops, or rubs. RESPIRATORY: Breath sounds equal bilaterally. No accessory muscle use. ABDOMEN/GI: Abdomen soft, non-tender, bowel sounds improved from the previous day Incision: Clean, dry and intact. Fundus: Firm, non-tender just above umbilicus. GENITOURINARY: Light to moderate bleeding. EXTREMITIES: No cyanosis or edema, non-tender, without signs of DVT. Medications and IVs Current Medications Medications (Trade) Dose Ordered Sig/Yessica Route Start Time Stop Time Status Last Admin (D50w (Vial) Inj) 50 ml UNSCH PRN IV PUSH 12/13/16 14:15 (Glucagon Inj) 1 mg STAT PRN IM 12/13/16 14:15 (NS Flush) 2 ml BID IV FLUSH 12/13/16 21:00 (NS Flush) 2 ml UNSCH PRN IV FLUSH 12/13/16 18:15 (Percocet 5-325 Mg) 1 tab Q4H PRN PO 12/13/16 18:15 12/16/16 18:46 (Percocet 5-325 Mg) 2 tab Q4H PRN PO 12/13/16 18:15 12/15/16 21:20 (Zofran Inj) 4 mg Q6H PRN IV PUSH 12/13/16 18:15 Sodium Chloride 1,000 ml @ 125 mls/hr Q8H IV 12/13/16 19:00 12/14/16 02:46 (NovoLIN R SUPPLEMENTAL SCALE) 1 ACHS SLIDING SCALE SQ 12/13/16 21:00 12/16/16 20:53 (Benadryl Inj) 50 mg Q6H PRN IM 12/13/16 21:15 12/14/16 05:05 (Motrin) 600 mg Q6H PRN PO 12/16/16 08:15 12/16/16 18:45 (Yajaira-Colace) 2 tab Q12H PRN PO 12/16/16 08:15 12/16/16 11:42 (Glucophage) 500 mg Q8HR PO 12/16/16 22:00 12/17/16 06:07 Assessment/Plan Assessment and Plan 21 y/o female who is POD# 4 s/p for nonreassuring heart rate tracing and abnormal ultrasound findings -Type I diabetic currently on metformin and sliding scale insulin. She was reportedly on Lantus 40 units subcutaneous daily at bedtime at home, but did not have any insulin medication for a while. -Bedside glucose 97-180 for the last 24 hrs -Patient reports that she is staying with a friend and has access to a refrigerator for insulin storage. -Patient will be discharge with Metformin 500mg TID -Continue routine care -Percocet and Motrin PRN pain -Pericolace PRN for constipation -Encouraged OOB. Advised pelvic rest for 6 wks -Will need a follow-up appointment within 1 week for incision check -Re: ctrl: Depo-Provera shot -Anticipate discharge today. -Discussed with case management for recommendations: access to medical care, transportation, living situation, and follow-up. Discussed with Dr. Moreland and Fang Hoyt MD Dec 17, 2016 10:18
== END 2016-12-17 12:00 | disposition home or self-care (01) | DRG 766 ==
LOC: H2EA 13:17 → OBSVTOIN 14:23 → H1EA 19:47
PROVIDERS: ADMIT Obstetrics & Gynecology Maternal & Fetal Medicine; ATTEND Obstetrics & Gynecology Maternal & Fetal Medicine
PROC: 10D00Z1 Extraction of Products of Conception, Low, Open Approach (ICD-10-PCS; principal; 2016-12-13)
DX: O24.02 Pre-existing type 1 diabetes mellitus, in childbirth (principal); E10.65 Type 1 diabetes mellitus with hyperglycemia; Z3A.35 35 weeks gestation of pregnancy; Z37.0 Single live birth; O76 Abnormality in fetal heart rate and rhythm complicating labor and delivery; O34.211 Maternal care for low transverse scar from previous cesarean delivery; E86.0 Dehydration; Z79.4 Long term (current) use of insulin
CPT/HCPCS: 59025; 76816; 76819; 76937; 80053; 80074; 80307; 81001; 82805; 82948; 83036; 84443; 85025; 86592; 86703; 86762; 86850; 86900; 86901; 87086; 88307; 90686; 90715; J0131; J0690; J1050; J1200; J1885; J2274; J2370; J2405; J2590; J7030; J7120; Q2038